=== PATIENT | female | born 1965 | race Caucasian/White ===

== ENCOUNTER 2022-11-29 06:32 | Day surgery (SDC) | payer OTHER ==
[~2022-11-29] VITALS: Ht 170.2 cm; Wt 100.7 kg
[~2022-11-29 06:32] MED LIST: ACET500; IBUP400 PO; LOSA25 PO; ZINC15
--- NOTE | 2022-11-29 06:50 | NUR ---
History, Chart, Medications and Allergies reviewed before start of procedure.Patient States Post-Procedure ride home has been arranged.
--- NOTE | 2022-11-29 07:35 | NUR ---
11/29/22 0735 Israel Martínez HISTORY, CHART, MEDICATIONS AND ALLERGIES REVIEWED BEFORE START OF PROCEDURE. PATIENT CONFIRMS NPO STATUS AND AGREES WITH SCHEDULED PROCEDURE. 3-LEAD EKG REVIEWED WITH PHYSICIAN PRIOR TO START OF PROCEDURE. MONITOR INTACT WITH CONTINUOUS PULSE OXIMETRY,CAPNOGRAPHY, 3-LEAD EKG, INTERMITTENT BP. SUPPLEMENTAL O2 TO BE TITRATED THROUGHOUT PROCEDURE TO MAINTAIN O2 SATURATION ABOVE 90%. PATIENT DETERMINED TO BE ASA APPROPRIATE FOR PROPOFOL SEDATION PRIOR TO START OF PROCEDURE BY DR. HOLCOMB.
--- NOTE | 2022-11-29 08:18 | NUR ---
Ambulatory in Day Surgery WITH HELP DUE TO BOOT ON FOOT FOR FRACTURED ANKLE. Discharge instructions reviewed with patient. Patient verbalizes understanding. Copy given to patient to take home. Discharged via wheelchair to private car for ride homE WITH BROTHER
== END 2022-11-29 22:54 | disposition home or self-care (01) ==
LOC: ORSCMMR 06:32 → ORD 07:30 → ORSCMMR 07:30
PROVIDERS: Internal Medicine Gastroenterology
PROC: 0DBK8ZX Excision of Ascending Colon, Via Natural or Artificial Opening Endoscopic, Diagnostic (ICD-10-PCS; principal; 2022-11-29 07:30)
DX: Z12.11 Encounter for screening for malignant neoplasm of colon (principal); Z86.010 Personal history of colon polyps; I10 Essential (primary) hypertension; J45.909 Unspecified asthma, uncomplicated; Z79.899 Other long term (current) drug therapy
CPT/HCPCS: 88305; J2704; J7120